=== PATIENT | female | born 1980 | race Two or more races ===

== ENCOUNTER 2020-08-21 10:37 | Outpatient (CLI) | payer OTHER | END 2020-08-21 11:00 | disposition home or self-care (01) | LOC: RX STUDY 10:37 → SONOGRAMA 10:37 → RX STUDY 10:45 → SONOGRAMA 11:00 | PROVIDERS: ATTEND Specialist | DX: N84.0 Polyp of corpus uteri (principal) ==

== ENCOUNTER 2023-10-09 08:59 | Outpatient (CLI) | payer OTHER | END 2023-10-09 09:11 | disposition home or self-care (01) | LOC: SONOGRAMA 08:59 | PROVIDERS: ATTEND Obstetrics & Gynecology | DX: N84.0 Polyp of corpus uteri (principal) ==